=== PATIENT | male | born 1970 | race Caucasian/White ===

== ENCOUNTER 2023-07-22 20:22 | Emergency (ER) | payer SELFPAY | END 2023-07-22 21:27 | disposition home or self-care (01) | LOC: CSHERS 20:22 | DX: E11.65 Type 2 diabetes mellitus with hyperglycemia (principal); I10 Essential (primary) hypertension; F17.220 Nicotine dependence, chewing tobacco, uncomplicated; Z79.899 Other long term (current) drug therapy | CPT/HCPCS: 36416; 99283 ==